=== PATIENT | female | born 1985 | race Caucasian/White ===

== ENCOUNTER 2018-01-23 11:15 | Observation (INO) | payer OTHER ==
[~2018-01-23] VITALS: Ht 152.4 cm; Wt 64.4 kg
[2018-01-23 11:30] VITALS: BP 110/63
== END 2018-01-23 12:25 | disposition home or self-care (01) ==
LOC: 4S 11:15
PROVIDERS: ADMIT Obstetrics & Gynecology; ATTEND Obstetrics & Gynecology
DX: O48.0 Post-term pregnancy (principal); Z3A.40 40 weeks gestation of pregnancy
CPT/HCPCS: 59025; G0378

== ENCOUNTER 2018-01-26 12:08 | Observation (INO) | payer OTHER ==
[~2018-01-26] VITALS: Ht 157.5 cm; Wt 64.0 kg
[2018-01-26 12:20] VITALS: BP 103/53
== END 2018-01-26 13:15 | disposition home or self-care (01) ==
LOC: 4S 12:08
PROVIDERS: ADMIT Obstetrics & Gynecology; ATTEND Obstetrics & Gynecology
DX: O48.0 Post-term pregnancy (principal); Z3A.40 40 weeks gestation of pregnancy
CPT/HCPCS: 59025; G0378

== ENCOUNTER 2018-01-28 18:16 | Inpatient (IN) | payer OTHER ==
[~2018-01-28] VITALS: Ht 152.4 cm; Wt 64.0 kg
[~2018-01-28 18:16] MED LIST: CITRIC ACID/SODIUM CITRATE 30 ML SOLUTION UDCUP PO PRN; METOCLOPRAMIDE HCL 5 MG/ML 2 ML VIAL IVP PRN; RINGERS SOLUTION,LACTATED 1,000 ML IV PRN
[2018-01-28 19:09] LABS: BASOPHILS % (AUTO) 0.9 % (0.0-2.0); EOSINOPHILS % (AUTO) 0.9 % (1.0-6.0); HEMATOCRIT 36.2 % (36-46); HEMOGLOBIN 12.4 g/dL (12.0-16.0); LYMPHOCYTES # (AUTO) 1.2 K/uL (1.0-4.8); LYMPHOCYTES % (AUTO) 13.2 % (22.0-44.0); MEAN CORPUSCULAR HGB CONC 34.2 G/dL (31.0-37.0); MEAN CORPUSCULAR VOLUME 94 fL (80-100); MONOCYTES # (AUTO) 0.6 K/uL (0.1-1.0); MONOCYTES % (AUTO) 6.1 % (2.0-9.0); NEUTROPHILS # (AUTO) 7.5 K/uL (1.8-7.7); NEUTROPHILS % (AUTO) 78.9 % (40.0-70.0); PLATELET COUNT (AUTO) 240 K/uL (150-450); RED BLOOD CELL COUNT(AUTO) 3.87 MIL/uL (4.00-5.20); RED CELL DISTRIBUTION WIDTH 13.5 % (11.5-14.5)
[2018-01-28 19:23] VITALS: BP 108/60
[2018-01-28] MEDS ORDERED: OXYGEN THERAPY IH SCH (20:00)
[2018-01-28] MEDS ORDERED: INFLUENZA VIRUS VACCINE QVS 2017-18 (3YR+)/PF 60 MCG/0.5 ML SYRINGE IM ONE (20:15)
[2018-01-28] MEDS ORDERED: DINOPROSTONE 10 MG VAGINAL SUPPOSITORY VG ONE ×2 (20:30)
[2018-01-28] MEDS: RINGERS SOLUTION,LACTATED 1,000 ML IV SCH (20:52)
[2018-01-28] MEDS ORDERED: OXYTOCIN 30 UNITS/LACT RINGERS 500 ML IV ONE (21:02)
[2018-01-28] MEDS ORDERED: FentaNYL CITRATE-PF 100 MCG/2 ML VIAL IVP PRN (21:15)
[2018-01-29] MEDS ORDERED: OXYTOCIN 30 UNITS/LACT RINGERS 500 ML IV PRN (09:06)
[2018-01-29] MEDS ORDERED: ROPIVACAINE HCL 0.2% 100 ML ED ONE (09:18)
[2018-01-29] MEDS: RINGERS SOLUTION,LACTATED 1,000 ML IV SCH (15:16)
[2018-01-29] MEDS ORDERED: BENZOCAINE 20%/MENTHOL 56 GM SPRAY CANISTER TP PRN (17:00)
[2018-01-29] MEDS ORDERED: LANOLIN 7 GM OINTMENT TP PRN (17:00)
[2018-01-29] MEDS ORDERED: ACETAMINOPHEN/CODEINE 300-30 MG TABLET PO PRN ×2 (17:00)
[2018-01-29] MEDS ORDERED: GLYCERIN/WITCH HAZEL LEAF 40 PADS JAR TP PRN (17:00)
[2018-01-29] MEDS: IBUPROFEN 800 MG TABLET PO SCH (18:41)
[2018-01-29] MEDS ORDERED: MAGNESIUM HYDROXIDE SUSPENSION 30 ML UDCUP PO SCH (21:00)
[2018-01-30] MEDS: IBUPROFEN 800 MG TABLET PO SCH ×3 (00:20→12:06)
== END 2018-01-30 17:35 | disposition home or self-care (01) | DRG 775 ==
LOC: 4S 18:16 → OBSVTOIN 18:16
PROVIDERS: ADMIT Obstetrics & Gynecology; ATTEND Obstetrics & Gynecology
PROC: 4A1HXCZ Monitoring of Products of Conception, Cardiac Rate, External Approach (ICD-10-PCS; 2018-01-28)
PROC: 10D07Z6 Extraction of Products of Conception, Vacuum, Via Natural or Artificial Opening (ICD-10-PCS; principal; 2018-01-29)
PROC: 0W8NXZZ Division of Female Perineum, External Approach (ICD-10-PCS; 2018-01-29)
PROC: 3E0R3BZ Introduction of Anesthetic Agent into Spinal Canal, Percutaneous Approach (ICD-10-PCS; 2018-01-29)
PROC: 00HU33Z Insertion of Infusion Device into Spinal Canal, Percutaneous Approach (ICD-10-PCS; 2018-01-29)
DX: O69.81X0 Labor and delivery complicated by cord around neck, without compression, not applicable or unspecified (principal); O77.0 Labor and delivery complicated by meconium in amniotic fluid; Z3A.41 41 weeks gestation of pregnancy; Z79.899 Other long term (current) drug therapy; Z37.0 Single live birth
CPT/HCPCS: 86850; 86900; 86901; J2590; J2795; J7120